=== PATIENT | female | born 1950 | race Caucasian/White ===

== ENCOUNTER 2017-08-19 11:15 | Emergency (ER) | payer MEDICARE, OTHER ==
[~2017-08-19] VITALS: Ht 157.5 cm; Wt 106.1 kg
[~2017-08-19 11:15] MED LIST: AMLODIPINE BESY10 MG PO; ASCORBIC ACID500 MG PO; ASPIR 8181 MG PO; CARAFATE1 GM PO; CIPRO500 MG PO; COGENTIN1 MG/1 ML PO; IRON325 M1 PO; ISOSORBIDE DINI20 MG PO; ISOSORBIDE MONO20 MG PO; LASIX40 MG PO; LISINOPRIL10 MG PO; LISINOPRIL30 MG PO; LOPRESSOR25 MG PO; METOPROLOL TAR100 MG PO; METOPROLOL TART25 MG PO; METOPROLOL TART50 MG PO; MULTIPLE VITAM1 EAC1 PO; PANTOPRAZOLE SO40 MG PO; POTASSIUM CHLO10 ME1 PO; PROTONIX40 MG/ML PO; XARELTO15 MG PO; ZYPREXA15 MG PO
[2017-08-19 12:39] LABS: BASOPHILS % 0.4 % (0.0-1.0); EOSINOPHILS # (AUTO) 0.4 (0.0-0.4); EOSINOPHILS % 5.6 % (0.0-6.0); HEMATOCRIT 34.4 % (34.2-44.1); HEMOGLOBIN 10.8 g/dL (12.0-16.0); LYMPHOCYTES % 27.1 % (18.0-39.1); MEAN CORPUSCULAR HEMOGLOBIN 22.9 pg (28-32); MEAN CORPUSCULAR HGB CONC 31.4 g/dL (31-35); MONOCYTES # (AUTO) 0.7 (0.2-0.8); MONOCYTES % 10.1 % (4.4-11.3); NEUTROPHILS # (AUTO) 4.1 (2.1-6.9); NEUTROPHILS % 56.5 % (38.7-80.0); PLATELET COUNT 310 x10e3/uL (140-360); RED BLOOD COUNT 4.71 x10e6/uL (3.6-5.1); RED CELL DISTRIBUTION WIDTH 22.9 % (11.7-14.4)
--- NOTE | 2017-08-19 13:03 | Diagnostic Imaging Report ---
PROCEDURE: A single AP view of the chest. COMPARISON: Patients [facility], , CHEST SINGLE (PORTABLE), 04/30/2017, 13:50. INDICATIONS: CHEST PAIN, ELEVATED BLOOD PRESSURE FINDINGS: Exam is limited by rotation. Lines/tubes: Stable 2-lead left upper chest cardiac device Lungs: The lungs are well inflated and grossly clear. There is no evidence of pneumonia or pulmonary edema. Pleura: There is no pleural effusion or pneumothorax. Heart and mediastinum: Cardiac silhouette is unremarkable. Pulmonary vasculature is normal. Tortuous aorta Bones: No acute bony abnormality. Multilevel degenerative disc changes in the thoracic spine. IMPRESSION: 1. No acute cardiopulmonary abnormalities. Meng Lou M.D. Dictated by: Meng Lou M.D. on 08/19/2017 at 13:11 Electronically approved by: Meng Lou M.D. on 08/19/2017 at 13:11
[2017-08-19 13:04] LABS: TROPONIN I 0.009 ng/mL (0-0.300)
[2017-08-19 13:06] LABS: ALANINE AMINOTRANSFERASE 7 IU/L (0-55); ALBUMIN 3.6 g/dL (3.5-5.0); ALKALINE PHOSPHATASE 106 IU/L (40-150); ANION GAP 11.9 mmol/L (8-16); BLOOD UREA NITROGEN 7 mg/dL (7-26); BUN/CREATININE RATIO 10 (6-25); CALCIUM 9.1 mg/dL (8.4-10.2); CARBON DIOXIDE 26 mmol/L (22-29); CHLORIDE 104 mmol/L (98-107); CREATINE KINASE 26 IU/L (29-168); CREATININE, SERUM 0.71 mg/dL (0.57-1.11); EST GLOMERULAR FILTRATION RATE > 60 ML/MIN (60-); GLUCOSE 95 mg/dL (74-118); POTASSIUM 3.9 mmol/L (3.5-5.1); SODIUM 138 mmol/L (136-145)
[2017-08-19 16:03] VITALS: BP 145/101
[2017-08-19 18:59] LABS: INR 1.13; PROTHROMBIN TIME 11.8 seconds (11.9-14.5)
== END 2017-08-19 16:15 | disposition home or self-care (01) ==
LOC: ER 11:15
DX: R07.89 Other chest pain (principal); I48.91 Unspecified atrial fibrillation; I25.10 Atherosclerotic heart disease of native coronary artery without angina pectoris; F20.9 Schizophrenia, unspecified; Z85.828 Personal history of other malignant neoplasm of skin; Z95.810 Presence of automatic (implantable) cardiac defibrillator
CPT/HCPCS: 36415; 71010; 80053; 82550; 82553; 84484; 85025; 85610; 85730; 93005; 99284

== ENCOUNTER 2017-09-14 10:34 | Emergency (ER) | payer MEDICARE, OTHER ==
[~2017-09-14] VITALS: Ht 157.5 cm; Wt 102.1 kg
--- NOTE | 2017-09-14 11:36 | Diagnostic Imaging Report ---
PROCEDURE: A single AP view of the chest. COMPARISON: None. INDICATIONS: SOB FINDINGS: Lines/tubes: Left chest cardiac device with leads projecting over the expected regions of the right atrium and ventricle. Lungs: The lungs are well inflated and clear. There is no evidence of pneumonia or pulmonary edema. Pleura: There is no pleural effusion or pneumothorax. Heart and mediastinum: The heart and the mediastinum are unremarkable. Bones: No acute bony abnormality. Degenerative changes of the thoracic spine. IMPRESSION: No acute radiographic abnormality. Dictated by: Stoney Foy M.D. on 09/14/2017 at 11:45 Electronically approved by: Stoney Foy M.D. on 09/14/2017 at 11:45
[2017-09-14 12:15] LABS: BASOPHILS # (AUTO) 0.1 (0.0-0.1); BASOPHILS % 0.5 % (0.0-1.0); EOSINOPHILS # (AUTO) 0.4 (0.0-0.4); EOSINOPHILS % 3.8 % (0.0-6.0); HEMATOCRIT 36.7 % (34.2-44.1); HEMOGLOBIN 12.4 g/dL (12.0-16.0); LYMPHOCYTES # (AUTO) 2.6 (1.0-3.2); LYMPHOCYTES % 23.7 % (18.0-39.1); MEAN CORPUSCULAR HEMOGLOBIN 24.3 pg (28-32); MEAN CORPUSCULAR HGB CONC 33.8 g/dL (31-35); MONOCYTES # (AUTO) 0.8 (0.2-0.8); MONOCYTES % 7.4 % (4.4-11.3); NEUTROPHILS # (AUTO) 6.9 (2.1-6.9); NEUTROPHILS % 64.2 % (38.7-80.0); PLATELET COUNT 283 x10e3/uL (140-360); RED CELL DISTRIBUTION WIDTH 20.9 % (11.7-14.4)
[2017-09-14 12:31] LABS: INR 1.56; PROTHROMBIN TIME 19.5 seconds (11.9-14.5)
[2017-09-14 12:40] LABS: ALANINE AMINOTRANSFERASE 8 IU/L (0-55); ALBUMIN 3.7 g/dL (3.5-5.0); ALKALINE PHOSPHATASE 107 IU/L (40-150); ANION GAP 12.9 mmol/L (8-16); BLOOD UREA NITROGEN 9 mg/dL (7-26); BUN/CREATININE RATIO 12 (6-25); CALCIUM 9.1 mg/dL (8.4-10.2); CARBON DIOXIDE 24 mmol/L (22-29); CHLORIDE 96 mmol/L (98-107); CREATINE KINASE 27 IU/L (29-168); CREATININE, SERUM 0.77 mg/dL (0.57-1.11); EST GLOMERULAR FILTRATION RATE > 60 ML/MIN (60-); GLUCOSE 106 mg/dL (74-118); LIPASE 9 U/L (8-78); POTASSIUM 3.9 mmol/L (3.5-5.1); SODIUM 129 mmol/L (136-145)
[2017-09-14 12:47] LABS: TROPONIN I < 0.001 ng/mL (0-0.300)
[2017-09-14 19:01] LABS: CREATINE KINASE MB 0.6 ng/mL (0.00-5.00); TROPONIN I 0.001 ng/mL (0-0.300)
[2017-09-14 20:44] VITALS: BP 168/72
== END 2017-09-14 21:56 | disposition home or self-care (01) ==
LOC: ER 10:34
DX: R07.89 Other chest pain (principal); I10 Essential (primary) hypertension; I48.91 Unspecified atrial fibrillation; F20.9 Schizophrenia, unspecified; Z95.810 Presence of automatic (implantable) cardiac defibrillator; Z85.828 Personal history of other malignant neoplasm of skin
CPT/HCPCS: 36415; 71010; 80053; 82550; 82553; 83690; 83880; 84484; 85025; 85610; 93005; 99283

== ENCOUNTER 2017-10-25 09:42 | Observation (INO) | payer MEDICARE, OTHER ==
[~2017-10-25] VITALS: Ht 157.5 cm; Wt 123.1 kg
[2017-10-25] MEDS ORDERED: ASPIRIN 81 MG CHEW TAB PO ONE (10:00)
[2017-10-25] MEDS ORDERED: LABETALOL HCL 5 MG/ML 20ML VIAL IV STA (10:03)
[2017-10-25 10:09] LABS: BASOPHILS % 0.5 % (0.0-1.0); EOSINOPHILS # (AUTO) 0.3 (0.0-0.4); EOSINOPHILS % 3.2 % (0.0-6.0); HEMATOCRIT 37.9 % (34.2-44.1); HEMOGLOBIN 12.7 g/dL (12.0-16.0); LYMPHOCYTES # (AUTO) 2.2 (1.0-3.2); LYMPHOCYTES % 25.3 % (18.0-39.1); MEAN CORPUSCULAR HEMOGLOBIN 25.5 pg (28-32); MEAN CORPUSCULAR HGB CONC 33.5 g/dL (31-35); MEAN CORPUSCULAR VOLUME 76.1 fL (81-99); MONOCYTES # (AUTO) 0.6 (0.2-0.8); MONOCYTES % 6.8 % (4.4-11.3); NEUTROPHILS # (AUTO) 5.5 (2.1-6.9); PLATELET COUNT 242 x10e3/uL (140-360); RED BLOOD COUNT 4.98 x10e6/uL (3.6-5.1); RED CELL DISTRIBUTION WIDTH 16.3 % (11.7-14.4)
[2017-10-25] MEDS ORDERED: SODIUM CHLORIDE 0.9% 500ML 500 ML IV ONE (10:15)
[2017-10-25 10:30] LABS: ALANINE AMINOTRANSFERASE 7 IU/L (0-55); ALBUMIN 3.8 g/dL (3.5-5.0); ALKALINE PHOSPHATASE 113 IU/L (40-150); ANION GAP 13.7 mmol/L (8-16); BLOOD UREA NITROGEN 11 mg/dL (7-26); BUN/CREATININE RATIO 15 (6-25); CALCIUM 8.8 mg/dL (8.4-10.2); CARBON DIOXIDE 23 mmol/L (22-29); CHLORIDE 101 mmol/L (98-107); CREATINE KINASE 30 IU/L (29-168); CREATININE, SERUM 0.71 mg/dL (0.57-1.11); EST GLOMERULAR FILTRATION RATE > 60 ML/MIN (60-); GLUCOSE 101 mg/dL (74-118); INR 1.17; POTASSIUM 3.7 mmol/L (3.5-5.1); SODIUM 134 mmol/L (136-145)
[2017-10-25 10:31] LABS: PARTIAL THROMBOPLASTIN TIME 32.6 seconds (23.8-35.5)
--- NOTE | 2017-10-25 11:22 | Diagnostic Imaging Report ---
Chest, AP. History: Cough. Comparison: Portable chest 09/14/2017 Discussion: Lines and support catheters: Left chest dual-lead cardiac pacemaker with leads projecting over the expected regions of the right atrium and ventricle unchanged. Cardiovascular: The cardiac silhouette is mildly enlarged. Mediastinum: No mediastinal, hilar, or axillary mass or lymphadenopathy. Lungs: No parenchymal mass. No focal consolidation. Pleura: No pleural effusion or pneumothorax. Bones: No acute osseous abnormality. Degenerative changes of the thoracic spine. Impression: Mild cardiomegaly. No acute thoracic abnormality. Signed by: Dr. Tylor Rivas M.D. on 10/25/2017 11:18 AM
[2017-10-25] MEDS ORDERED: HYDRALAZINE HCL 10 MG TAB PO NR (12:00)
--- NOTE | 2017-10-25 12:08 | Diagnostic Imaging Report ---
History:Headache and hypertension. Comparison studies:None Technique: Axial images were obtained from the skull base to the vertex. Coronal and sagittal images reconstructed from the axial data. Intravenous contrast: None Findings: Scalp/skull: No abnormalities. Extra-axial spaces: No masses. No fluid collections. Brain sulci: Mildly prominent. Ventricles: Age appropriate. No hydrocephalus. Parenchyma: Stable left putamen prominent prevascular space as a variation of anatomy. . No masses, hemorrhage, acute or chronic cortical vascular insults. Sellar/suprasellar region: No abnormalities. Craniocervical junction: Patent foramen magnum. No Chiari one malformation. Incidental findings: Atherosclerotic calcifications in the carotid siphons . Impression: No acute abnormalities. Signed by: DR Marc Gordillo M.D. on 10/25/2017 12:05 PM
[2017-10-25] MEDS ORDERED: HYDRALAZINE HCL 20 MG/ML VIAL IV PRN (12:30)
[2017-10-25 13:40] VITALS: BP 166/84
[2017-10-25 16:17] VITALS: BP 141/89
[2017-10-25] MEDS ORDERED: ACETAMINOPHEN/CODEINE 300MG - 30MG TAB PO PRN (18:00)
[2017-10-25] MEDS ORDERED: ASPIRIN 81 MG CHEW TAB PO PRN (18:00)
[2017-10-25] MEDS: ACETAMINOPHEN 325 MG TAB PO PRN (18:19)
[2017-10-25] MEDS: SUCRALFATE 1 GM TAB PO SCH ×2 (18:20→21:30)
[2017-10-25 19:08] LABS: CREATINE KINASE MB 0.6 ng/mL (0-5.0)
[2017-10-25 20:00] VITALS: BP 136/79
[2017-10-25 22:03] VITALS: BP 136/79
[2017-10-26] VITALS: BP 146/96
[2017-10-26 04:00] VITALS: BP 145/83
[2017-10-26] MEDS: PANTOPRAZOLE SOD 40 MG TABEC PO SCH ×2 (07:30→16:30)
[2017-10-26] MEDS ORDERED: MULTIVITAMIN WITH MINERALS PO SCH (08:00)
[2017-10-26] MEDS: MULTIVITAMINS/MINERALS TAB PO SCH ×2 (08:00→16:42)
[2017-10-26] MEDS: ASCORBIC ACID 500 MG TAB PO SCH ×2 (08:00→16:42)
[2017-10-26 08:17] VITALS: BP 165/104
[2017-10-26 08:22] LABS: CREATINE KINASE MB 0.6 ng/mL (0-5.0)
[2017-10-26] MEDS: RIVAROXABAN 15 MG TABLET PO SCH (09:00)
[2017-10-26] MEDS: FUROSEMIDE 40 MG TAB PO SCH ×2 (09:00→16:42)
[2017-10-26] MEDS: LISINOPRIL 10 MG TAB PO SCH ×2 (09:00→16:42)
[2017-10-26] MEDS ORDERED: ASPIRIN 325 MG TAB EC PO SCH (09:00)
[2017-10-26] MEDS: ISOSORBIDE MONONITRATE 20 MG TAB PO SCH ×2 (09:00→16:41)
[2017-10-26] MEDS ORDERED: OLANZAPINE 15 MG PO SCH (09:00)
[2017-10-26] MEDS: METOPROLOL TARTRATE 25 MG TAB PO SCH (09:00)
[2017-10-26] MEDS: OLANZAPINE 5 MG TAB PO SCH (09:00)
[2017-10-26] MEDS: SUCRALFATE 1 GM TAB PO SCH ×4 (09:00→21:00)
[2017-10-26] MEDS: POTASSIUM CHLORIDE 10 MEQ TABCR PO SCH (09:00)
[2017-10-26 11:55] VITALS: BP 107/74
[2017-10-26 16:22] VITALS: BP 119/77
--- NOTE | 2017-10-26 19:52 | History and Physical ---
PRIMARY CARE PROVIDER: Dr. Clinton Parra CHIEF COMPLAINT: Chest pain and shortness of breath and accelerated hypertension. HISTORY OF PRESENT ILLNESS: Ms. Gonzalez is a 67-year-old lady presenting with 1 day of chest pain and elevated blood pressure and some shortness of breath. REVIEW OF SYSTEMS: She denies fever, chills or weight loss. She denies sinus congestion or sore throat. She has chest pain as noted and shortness of breath. She denied wheezing or cough. She denies abdominal pain, nausea, vomiting or melena. She does have gastroesophageal reflux. She denies dysuria or flank pain. She denies rash or pruritus. She denies joint pain or swelling. She denies headache, vertigo or loss of consciousness. She denies bleeding or bruising. She denies rash or pruritus. She denies depression, agitation, homicide or suicidal ideation. PAST MEDICAL HISTORY: Significant for long-standing hypertension, paroxysmal atrial fibrillation, schizophrenia, colitis, chronic systolic heart failure with an ejection fraction of 40% to 45% six months ago. MEDICATIONS: Her regular medications include: 1. Vitamin C 500 mg twice a day. 2. Aspirin 81 mg daily. 3. Lasix 40 mg twice a day. 4. Isosorbide mononitrate 20 mg twice daily. 5. Lisinopril 10 mg twice daily. 6. Metoprolol 25 mg daily. 7. Multivitamin daily. 8. Zyprexa 15 mg daily. 9. Protonix 40 mg twice a day before meals. 10. Potassium 8 mEq daily. 11. Xarelto 15 mg daily. 12. Carafate 1 g 4 times a day before meals. 13. Iron sulfate 325 mg twice a day. 14. Cogentin as needed for agitation. She has a distant history of hysterectomy, appendectomy and she is not a smoker. ALLERGIES: SHE HAS A STATED ALLERGY TO CODEINE. FAMILY HISTORY: Significant for hypertension. SOCIAL HISTORY: The patient is . [place] is her primary language. She does not smoke, drink or use illegal drugs. She is generally independent functioning. PHYSICAL EXAMINATION PSYCHIATRIC: She is alert and oriented times 3 with normal mood and affect. CONSTITUTIONAL: She is somewhat overweight. Possibly morbidly obese. Her BMI is 49. She is in no acute distress. VITAL SIGNS: Blood pressure initially 194/121 and currently 119/77. Pulse initially 99 and currently 57 and regular. Respiratory rate 18, O2 sat 96% on room air, temperature 96.6. HEENT: Her head is atraumatic. Her eyes are anicteric with clear conjunctivae. Ears and nares are without erythema or discharge. Oropharynx is clear. NECK: Supple. No mass or thyromegaly. LYMPHATIC SYSTEM: She has no palpable cervical, axillary or inguinal adenopathy. CARDIOVASCULAR: Her heart has a regular rate and rhythm without murmur or extra heart sounds. She has no carotid bruit. She has no peripheral edema. She has weak dorsal pedal pulses. RESPIRATORY: Lungs are clear to auscultation and percussion with normal respiratory effort. GASTROINTESTINAL: Abdomen is soft without organomegaly, masses or tenderness. She has normal bowel sounds present. CUTANEOUS: Her skin is warm and dry to touch with no rash or skin breakdown. MUSCULOSKELETAL: Her joints are in normal alignment without erythema or swelling. She has no calf tenderness. NEUROLOGIC: Nonfocal with intact cranial nerves and no motor or sensory deficits. DIAGNOSTIC STUDIES: Chest x-ray shows cardiomegaly, but no acute disease. CT scan of the brain is normal with no acute disease. Her EKG shows normal sinus rhythm with pulmonary disease pattern, but no acute ischemic changes. Her echo she had in April of 2017 showed left ventricular hypertrophy and an EF of 40% to 45%. Her troponin is 0.00, 0.00, 0.00. BNP 106.7. Chemistry shows normal electrolytes. CO2 23, creatinine 0.71, BUN 11. Calcium 8.8. Glucose 101. Her transaminases, bilirubin and alk phos were all normal. CBC shows a white count of 8.54 with a normal differential. Hemoglobin 12.7, hematocrit 37.9 and platelet count 242,000. Coags are normal. IMPRESSION AND PLAN 1. Chest pain: Rule out acute coronary syndrome. Currently, the patient's myocardial infarction has ruled out with cardiac enzymes negative times 3. She no longer has any chest pain. Her electrocardiogram shows no acute changes. 2. Hypertension with chronic systolic heart failure: Hypertensive urgency or accelerated hypertension complicated by congestive heart failure. Her blood pressure is now controlled with her home meds of lisinopril, isosorbide metoprolol along with Lasix for the congestive heart failure. Will continue those and p.r.n. hydralazine. 3. Paroxysmal atrial fibrillation: The patient is currently in sinus rhythm. Will continue her metoprolol and Xarelto. 4. For schizophrenia, the patient will continue her Zyprexa. 5. For prophylaxis, the patient is on Xarelto for stroke and deep venous thrombosis prophylaxis, and Protonix for gastrointestinal prophylaxis. Job#: [id number] RI
[2017-10-26 20:00] VITALS: BP 140/92
[2017-10-27] VITALS: BP 121/80
[2017-10-27 04:00] VITALS: BP 146/93
[2017-10-27 06:43] LABS: BASOPHILS % 0.4 % (0.0-1.0); EOSINOPHILS # (AUTO) 0.2 (0.0-0.4); EOSINOPHILS % 2.7 % (0.0-6.0); HEMATOCRIT 33.8 % (34.2-44.1); HEMOGLOBIN 11.2 g/dL (12.0-16.0); LYMPHOCYTES # (AUTO) 1.9 (1.0-3.2); LYMPHOCYTES % 20.4 % (18.0-39.1); MEAN CORPUSCULAR HEMOGLOBIN 25.8 pg (28-32); MEAN CORPUSCULAR HGB CONC 33.1 g/dL (31-35); MEAN CORPUSCULAR VOLUME 77.9 fL (81-99); MONOCYTES # (AUTO) 0.9 (0.2-0.8); MONOCYTES % 9.7 % (4.4-11.3); NEUTROPHILS % 66.5 % (38.7-80.0); PLATELET COUNT 210 x10e3/uL (140-360); RED BLOOD COUNT 4.34 x10e6/uL (3.6-5.1); RED CELL DISTRIBUTION WIDTH 16.2 % (11.7-14.4)
[2017-10-27 07:05] LABS: BLOOD UREA NITROGEN 13 mg/dL (7-26); BUN/CREATININE RATIO 16 (6-25); CARBON DIOXIDE 27 mmol/L (22-29); CHLORIDE 97 mmol/L (98-107); CREATININE, SERUM 0.81 mg/dL (0.57-1.11); EST GLOMERULAR FILTRATION RATE > 60 ML/MIN (60-); GLUCOSE 102 mg/dL (74-118); SODIUM 134 mmol/L (136-145)
[2017-10-27 07:28] VITALS: BP 157/102
[2017-10-27] MEDS: ISOSORBIDE MONONITRATE 20 MG TAB PO SCH ×2 (08:43→18:05)
[2017-10-27] MEDS: FUROSEMIDE 40 MG TAB PO SCH ×2 (08:43→18:05)
[2017-10-27] MEDS: ASCORBIC ACID 500 MG TAB PO SCH ×2 (08:43→18:05)
[2017-10-27] MEDS: POTASSIUM CHLORIDE 10 MEQ TABCR PO SCH (08:43)
[2017-10-27] MEDS: MULTIVITAMINS/MINERALS TAB PO SCH ×2 (08:43→18:05)
[2017-10-27] MEDS: PANTOPRAZOLE SOD 40 MG TABEC PO SCH ×2 (08:43→16:31)
[2017-10-27] MEDS: SUCRALFATE 1 GM TAB PO SCH ×4 (08:43→21:00)
[2017-10-27] MEDS: LISINOPRIL 10 MG TAB PO SCH (08:44)
[2017-10-27] MEDS: OLANZAPINE 5 MG TAB PO SCH (08:44)
[2017-10-27] MEDS: RIVAROXABAN 15 MG TABLET PO SCH (08:44)
[2017-10-27] MEDS: METOPROLOL TARTRATE 25 MG TAB PO SCH (08:44)
[2017-10-27 11:23] VITALS: BP 94/70
[2017-10-27] MEDS: ACETAMINOPHEN 325 MG TAB PO PRN (11:28)
[2017-10-27] MEDS ORDERED: ACETAMIN/BUTALBITAL/CAFFEINE TAB PO PRN (14:00)
[2017-10-27] MEDS ORDERED: Multivitamins/Minerals PO (14:13)
[2017-10-27] MEDS ORDERED: Acetamin/Butalbital/Caffeine PO (14:13)
[2017-10-27] MEDS ORDERED: ZYPREXA5 MG PO (14:13)
[2017-10-27] MEDS ORDERED: LISINOPRIL10 MG PO (14:13)
[2017-10-27] MEDS ORDERED: ACETAMIN/BUTALBITAL/CAFFEINE TAB PO ONE (14:15)
[2017-10-27] MEDS ORDERED: LISINOPRIL 10 MG TAB PO SCH ×2 (15:00→17:00)
[2017-10-27 15:15] VITALS: BP 130/89
--- NOTE | 2017-10-27 18:00 | Discharge Summary ---
PERTINENT HISTORY AND PHYSICAL FINDINGS: The patient was admitted with chief complaint of chest pain and shortness of breath and accelerated hypertension. Her primary care physician is Dr. Clinton Parra. She is a 67-year-old lady who presented with one day of chest pain and elevated blood pressure with some shortness of breath. At the time, she had no other complaints. PAST MEDICAL HISTORY: Significant for longstanding hypertension, paroxysmal atrial fibrillation, schizophrenia, colitis, chronic systolic heart failure with an ejection fraction of 40% to 45% six months prior. She has a stated allergy to codeine. FAMILY HISTORY: Positive for hypertension. She denied any history of smoking, drinking or use of illicit drugs. Her admitting diagnostic studies included a chest x-ray which showed cardiomegaly without acute disease. CT of the brain was normal without any acute disease. EKG was normal with normal sinus rhythm with pulmonary disease pattern, but no acute ischemic changes. Her echocardiogram that she had in April of 2017 showed left ventricular hypertrophy and an ejection fraction of 40% to 45%. Troponin level was 0 x3. B-natriuretic peptide 106.7. Chemistry showed normal electrolytes. CO2 of 23, BUN 11, creatinine 0.71. Glucose 101. Calcium 8.8. Transaminases, bilirubin and alkaline phosphatase were all normal. CBC showed a white blood cell count of 8.54 with a normal differential. Hemoglobin 12.7, hematocrit 37.9 and platelet count of 242,000. Coags were normal. ADMITTING DIAGNOSES 1. Chest pain. 2. Hypertension with chronic systolic heart failure. 3. Paroxysmal atrial fibrillation. 4. Schizophrenia. DISCHARGE DIAGNOSES 1. Chest pain. 2. Hypertension with chronic systolic heart failure. 3. Paroxysmal atrial fibrillation. 4. Schizophrenia. 5. Headache. Today on the day of discharge, her sodium was 134, potassium 4.0, chloride 97, CO2 of 27, BUN 13, creatinine 0.81, glomerular filtration rate greater than 60. Glucose 102. WBC 9.05. Hemoglobin 11.2, hematocrit 33.8, platelets 210,000. Neutrophils 66.5%. Subjectively, she complains of severe headache with complaint of pain, 8/10 on a 0-10 scale. She has mild shortness of breath, no chest pain. Her last bowel movement was yesterday. Per telemetry, she is in normal sinus rhythm with a heart rate of 65. PHYSICAL EXAMINATION VITAL SIGNS: From today, temperature 96.2, heart rate 67, blood pressure 157/102 this morning and subsequently 94/70, respiratory rate 16, oxygen saturation 99%. GENERAL: The patient is in no acute distress. She is lying supine. LUNGS: Clear to auscultation. Respirations even and unlabored. HEENT: Extraocular eye movements intact. NECK: Supple. No lymphadenopathy or thyromegaly. CARDIOVASCULAR: Regular rate and rhythm without murmur. ABDOMEN: Bowel sounds positive x4 quadrants. Obese, soft and nontender. EXTREMITIES: Without pitting edema. No signs or symptoms of DVT. NEUROLOGIC: GCS 15, nonfocal, flat affect. Regarding her chest pain, rule out acute coronary syndrome. Her troponin I has been negative x3, no chest pain, no telemetry changes. Regarding her hypertension, she is on lisinopril, isosorbide mononitrate, metoprolol and Lasix all given at 9 a.m. which appears to have lowered her blood pressure a bit too low. So, I have changed her schedule on her lisinopril from 9 and 5 to 7 a.m. and 3 p.m. Will send her home on that. Another thing that may help her blood pressure is treating her headache. Tylenol was ineffective. Will try Fioricet and send her home with a prescription for that, and if it works she can try that at home. Her Zyprexa was continued for the schizophrenia. She was on Xarelto and Protonix for DVT and peptic ulcer disease prophylaxis respectively. Will send her home on a cardiac diet and activity as tolerated. The patient is to follow up with her primary care physician in one to two weeks. Dictated by: Vishnu Castillo NP MAXIMO MCCANN MD Job#: [id number]
[2017-10-27 21:56] VITALS: BP 130/89
== END 2017-10-27 22:58 | disposition home or self-care (01) ==
LOC: ER 09:42 → ERHOLD 12:52 → MED/SURG3 12:58
PROVIDERS: ADMIT Internal Medicine; ATTEND Internal Medicine
DX: R07.9 Chest pain, unspecified (principal); I16.0 Hypertensive urgency; I11.0 Hypertensive heart disease with heart failure; I50.22 Chronic systolic (congestive) heart failure; I48.0 Paroxysmal atrial fibrillation; K21.9 Gastro-esophageal reflux disease without esophagitis; F20.9 Schizophrenia, unspecified; E66.9 Obesity, unspecified; Z68.42 Body mass index [BMI] 45.0-49.9, adult; Z87.891 Personal history of nicotine dependence; Z95.0 Presence of cardiac pacemaker; Z79.02 Long term (current) use of antithrombotics/antiplatelets; Z79.82 Long term (current) use of aspirin
CPT/HCPCS: 36415 ×3; 70450; 71045; 80048; 80053; 82550 ×2; 82553 ×2; 82948; 83880; 84484 ×2; 85025 ×2; 85610; 85730; 93005; 99284; G0378 ×3; J0360; J3490; J7040

== ENCOUNTER → 2018-10-29 | Day surgery (SDC) | payer MEDICARE, OTHER ==
[~2018-10-29] MED LIST changes: +ATIVAN0.5 MG PO; +Acetamin/Butalbital/Caffeine PO; +FENTANYL CITRATE/PF 100MCG/2 ML INJ ONE; +GLUCAGON FOR INJ 1 MG VIAL ONE; +LACTULOSE20 GM/30 M PO; +LORATADINE PO; +MELATONIN3 MG PO; +MIDAZOLAM HCL 2 MG/2 ML VIAL ONE; +MIRALAX17 GM PO; +Multivitamins/Minerals PO; +NITROSTAT0.4 MG PO; +NORVASC5 MG PO; +OLANZAPINE20 MG PO; +PRILOSEC OTC20 MG PO; +PROPOFOL IV EMULSION 10 MG/ML 50 ML VIAL ONE; +TYLENOL EXTRA500 MG PO; +TYLENOL325 MG PO; +VITAMIN D1000 UNI1 PO; +VITAMIN D250000 UNIT PO; +XARELTO10 MG PO; +ZOLOFT50 MG PO; +ZYPREXA5 MG PO
--- OUTSIDE RECORDS SUMMARY | 2018-10-29 09:25 | XMS REPORT | Clinical Summary ---
Author Author [facility] Organization [facility] Address Unknown Phone Unavailable Care Team Providers Care Grants Manager Name Role Phone Mini Morillo MD PCP Allergies Comments Active Allergy Reactions Severity Noted Date Codeine GI Low 05/06/2018 Intolerance Medications End Date Status Medication Sig Dispensed Refills Start Date Active nitroglycerin (NITROSTAT) Place 0.4 mg 0 0.4 MG SL tablet under the tongue every 5 (five) minutes as needed for chest pain. Active amLODIPine (NORVASC) 5 mg Take 5 mg by 0 tablet mouth daily. Active acetaminophen (TYLENOL) Take 650 mg 0 325 MG tablet by mouth every 6 (six) hours as needed for fever. Active cholecalciferol, vitamin Take 2,000 0 D3, (VITAMIN D3) 2,000 Units by unit capsule capsule mouth daily. Active rivaroxaban (XARELTO) 15 Take 15 mg by 0 mg tablet mouth. Active lisinopril Take 20 mg by 0 (PRINIVIL,ZESTRIL) 20 mg mouth 2 (two) tablet times a day. Active OLANZapine (ZyPREXA) 20 Take 20 mg by 0 MG tablet mouth nightly. Active benztropine (COGENTIN) 2 Take 2 mg by 0 MG tablet mouth 2 (two) times a day. Active loratadine (CLARITIN) 10 Take 10 mg by 0 mg tablet mouth daily. Active furosemide (LASIX) 20 mg Take 20 mg by 0 tablet mouth 2 (two) times a day. Active magnesium hydroxide 400 Take 30 mL by 0 mg/5 mL suspension mouth daily as needed. Active polyethylene glycol Take 17 g by 0 (MIRALAX) 17 gram packet mouth nightly. Active ergocalciferol (VITAMIN Take 50,000 0 D2) 50,000 unit capsule Units by mouth once a week. Every Thursday morning x 12 weeks (started 03-28- --14-18) 05/06/2018 Discontinued OLANZapine zydis Take 20 mg by 0 (ZyPREXA) 10 MG mouth disintegrating tablet nightly. 06/23/2018 aspirin (ECOTRIN) 81 MG Take 1 tablet 30 tablet 0 enteric coated tablet (81 mg total) 8 by mouth daily for 30 days. 06/23/2018 isosorbide dinitrate Take 1 tablet 60 tablet 0 (ISORDIL) 10 MG tablet (10 mg total) 8 by mouth 2 (two) times a day for 30 days. Active Problems Problem Noted Date Unstable angina 05/22/2018 Encounters Care Team Description Date Type Specialty Gunnar Santos Jr., MD Chest pain, unspecified type (Primary Dx) 06/18/2018 Emergency Emergency Medicine - 06/19/2018 Taran Ruiz MD Cv left heart cath w lv gram cors [[id number] (CPT)] 05/24/2018 Surgery Procedural Cardiology Alexia Crocker MD Morris, David, DO Li, MD Watson Cox, Fuad Dee MD Unstable angina (Primary Dx) 05/21/2018 Emergency General Internal Medicine - 05/24/2018 Farhan Hodgson MD Atypical chest pain (Primary Dx) 05/06/2018 Emergency Emergency Medicine after 10/28/2017 Immunizations Name Dates Previously Given Next Due FLUCELVAX QUAD PF (0.5mL 05/24/2018 syringe) Pneumococcal Conjugate 05/24/2018 13-Valent Social History Date Tobacco Use Types Packs/Day Years Used Never Smoker Smokeless Tobacco: Never Used Alcohol Use Drinks/Week oz/Week Comments No Sex Assigned at Date Recorded Not on file Industry Job Start Date Occupation Not on file Not on file Not on file Travel End Travel History Travel Start No recent travel history available. Last Filed Vital Signs Time Taken Vital Sign Reading 06/19/2018 3:26 AM CDT Blood Pressure 132/70 06/19/2018 3:26 AM CDT Pulse 70 06/18/2018 9:23 PM CDT Temperature 36.9 C (98.5 F) 06/19/2018 3:26 AM CDT Respiratory Rate 18 06/19/2018 3:26 AM CDT Oxygen Saturation 99% - Inhaled Oxygen - Concentration 06/18/2018 9:23 PM CDT Weight 108 kg (237 lb) 06/18/2018 9:23 PM CDT Height 157.5 cm (5' 2") 06/18/2018 9:23 PM CDT Body Mass Index 43.35 Plan of Treatment Health Maintenance Due Date Last Done Comments BREAST CANCER SCREENING 1998 COLON CANCER SCREENING 1998 SHINGLES VACCINES (#1) 1998 PNEUMOCOCCAL 2013 POLYSACCHARIDE VACCINE AGE 65 AND OVER 65+ PNEUMOCOCCAL VACCINE 05/24/2019 05/24/2018 (2 of 2 - PPSV23) INFLUENZA VACCINE Completed 05/24/2018 Implants Device Identifier Shelf Expiration Date Model / Serial / Lot Implanted Type Area Manufactur er 04/06/2020 [id number] / / [id number] Device Vasclr Clsr Baln Cath 10ml Cardiovasc N/A: N/A CARDINAL Lkng Syr 6fr 7fr Mynxgrip - [facility] [id number] Implants Implanted: 05/24/2018 (Quantity not on file) 04/06/2020 [id number] / / [id number] Device Vasclr Clsr Baln Cath 10ml Cardiovasc N/A: N/A CARDINAL Lkng Syr 6fr 7fr Mynxgrip - ar [facility] [id number] Implants Implanted: 05/24/2018 (Quantity not on file) Pacemaker Pacemaker Procedures Comments Procedure Name Priority Date/Time Associated Diagnosis TROPONIN Timed 06/19/2018 1:25 AM CDT URINALYSIS SCREEN AND Routine 06/18/2018 MICROSCOPY, WITH REFLEX 10:55 PM CDT TO CULTURE GRAM STAIN Routine 06/18/2018 10:55 PM CDT URINE CULTURE Routine 06/18/2018 10:55 PM CDT ECG ED PRELIMINARY Routine 06/18/2018 INTERPRETATION 10:16 PM CDT ESTIMATED GFR STAT 06/18/2018 10:01 PM CDT B NATRIURETIC PEPTIDE STAT 06/18/2018 10:01 PM CDT TROPONIN STAT 06/18/2018 10:01 PM CDT COMPREHENSIVE METABOLIC STAT 06/18/2018 PANEL 10:01 PM CDT PARTIAL THROMBOPLASTIN STAT 06/18/2018 TIME (PTT) 10:01 PM CDT PROTHROMBIN TIME WITH INR STAT 06/18/2018 10:01 PM CDT HC COMPLETE BLD COUNT STAT 06/18/2018 W/AUTO DIFF 10:01 PM CDT XR CHEST 2 VW STAT 06/18/2018 9:55 PM CDT ECG 12-LEAD STAT 06/18/2018 9:25 PM CDT CV LEFT HEART CATH LV Routine 05/24/2018 GRAM WITH CORS 10:51 AM CDT NM MYOCARDIAL PERFUSION Routine 05/23/2018 STRESS REST 2 DAY 11:26 AM CDT CV STRESS TEST NUCLEAR Routine 05/23/2018 CARDIO 11:26 AM CDT BILIRUBIN DIRECT Routine 05/23/2018 5:15 AM CDT ESTIMATED GFR Routine 05/23/2018 5:15 AM CDT THYROID STIMULATING Routine 05/23/2018 HORMONE 5:15 AM CDT T3, FREE Routine 05/23/2018 5:15 AM CDT PROTHROMBIN TIME WITH INR Routine 05/23/2018 5:15 AM CDT PARTIAL THROMBOPLASTIN Routine 05/23/2018 TIME (PTT) 5:15 AM CDT MAGNESIUM LEVEL Routine 05/23/2018 5:15 AM CDT LIPID PANEL Routine 05/23/2018 5:15 AM CDT HEMOGLOBIN A1C Routine 05/23/2018 5:15 AM CDT COMPREHENSIVE METABOLIC Routine 05/23/2018 PANEL 5:15 AM CDT HC COMPLETE BLD COUNT Routine 05/23/2018 W/AUTO DIFF 5:15 AM CDT B NATRIURETIC PEPTIDE Routine 05/23/2018 5:15 AM CDT TROPONIN Routine 05/22/2018 6:50 PM CDT D-DIMER STAT 05/22/2018 2:06 PM CDT CBC HEMOGRAM STAT 05/22/2018 2:06 PM CDT ANTI XA, UNFRACTIONATED STAT 05/22/2018 2:06 PM CDT PROTHROMBIN TIME WITH INR STAT 05/22/2018 2:06 PM CDT PARTIAL THROMBOPLASTIN STAT 05/22/2018 TIME (PTT) 2:[address] ANGIOGRAM PE CHEST STAT 05/22/2018 1:29 PM CDT TROPONIN Timed 05/22/2018 12:05 PM CDT ECHOCARDIOGRAM 2D Routine 05/22/2018 COMPLETE W MMODE SPECTRAL 11:48 AM CDT COLOR DOPPLER ([id number]) ESTIMATED GFR STAT 05/22/2018 8:45 AM CDT BASIC METABOLIC PANEL STAT 05/22/2018 8:45 AM CDT B NATRIURETIC PEPTIDE STAT 05/22/2018 8:45 AM CDT TROPONIN Timed 05/22/2018 8:45 AM CDT TROPONIN Timed 05/22/2018 4:13 AM CDT TROPONIN Timed 05/22/2018 2:00 AM CDT ESTIMATED GFR STAT 05/21/2018 10:13 PM CDT PROTHROMBIN TIME WITH INR STAT 05/21/2018 10:13 PM CDT TROPONIN STAT 05/21/2018 10:13 PM CDT CREATINE KINASE, TOTAL STAT 05/21/2018 (CPK) 10:13 PM CDT COMPREHENSIVE METABOLIC STAT 05/21/2018 PANEL 10:13 PM CDT HC COMPLETE BLD COUNT STAT 05/21/2018 W/AUTO DIFF 10:13 PM CDT ECG ED PRELIMINARY Routine 05/21/2018 INTERPRETATION 10:06 PM CDT XR CHEST 1 VW PORTABLE STAT 05/21/2018 9:57 PM CDT ECG 12-LEAD STAT 05/21/2018 9:42 PM CDT TROPONIN Timed 05/06/2018 12:55 PM CDT ZZESTIMATED GFR STAT 05/06/2018 10:30 AM CDT B NATRIURETIC PEPTIDE STAT 05/06/2018 10:30 AM CDT TROPONIN STAT 05/06/2018 10:30 AM CDT CREATINE KINASE, TOTAL STAT 05/06/2018 (CPK) 10:30 AM CDT BASIC METABOLIC PANEL STAT 05/06/2018 10:30 AM CDT HC COMPLETE BLD COUNT STAT 05/06/2018 W/AUTO DIFF 10:30 AM CDT XR CHEST 1 VW PORTABLE STAT 05/06/2018 10:05 AM CDT ECG 12-LEAD STAT 05/06/2018 10:00 AM CDT ECG ED PRELIMINARY Routine 05/06/2018 INTERPRETATION 9:59 AM CDT after 10/28/2017 Results * Troponin (06/19/2018 1:25 AM CDT) Only the most recent of 10 results within the time period is included. Troponin <0.30 0.00 - 0.30 ng/mL [facility] Comment: PATHOLOGY AND 0.11 - 1.49 GENOMIC MEDICINE ng/mlMay indicate increased risk of acute coronary syndrome. >=1.5 ng/ml Consistent with acute myocardial infarction. The diagnostic value of a single normal or non-diagnostic result is questionable.Serial samples at 2-6 hour intervals are required to rule out acute myocardial injury. Specimen Plasma specimen Performing Organization Address City/State/Zipcode Phone Number [place] [address] [place] [address] PATHOLOGY AND [facility] * Urinalysis screen and microscopy, with reflex to culture (06/18/2018 10:55 PM CDT) Specimen site Clean catch [facility]Y AND GENOMIC MEDICINE Color, UA Straw [facility] OF PATHOLOGY AND GENOMIC MEDICINE Appearance, UA Clear [facility]OLOGY AND GENOMIC MEDICINE Specific gravity, UA 1.004 1.001 - 1.035 [facility]Y AND GENOMIC MEDICINE pH, UA 6.0 5.0 - 8.5 [facility]Y AND GENOMIC MEDICINE Protein, UA Negative Negative [facility]Y AND GENOMIC MEDICINE Glucose, UA Negative Negative [facility]OLOGY AND GENOMIC MEDICINE Ketones, UA Negative Negative [facility]OLOGY AND GENOMIC MEDICINE Bilirubin, UA Negative Negative [facility]Y AND GENOMIC MEDICINE Blood, UA Small (A) Negative [facility]Y AND GENOMIC MEDICINE Nitrite, UA Negative Negative [facility]OLOGY AND GENOMIC MEDICINE Urobilinogen, UA Negative <2.0 [facility]Y AND GENOMIC MEDICINE Leukocyte esterase, UA Large (A) Negative [facility] Comment: PATHOLOGY AND Corrected result; previously [facility] reported as Negative on 06/18/2018 at 23:29 by I/AUT Epithelial cells, UA Few /HPF [facility]OLOGY AND GENOMIC MEDICINE WBC, UA None seen 0 - 5 /HPF [facility]OLOGY AND GENOMIC MEDICINE RBC, UA <1 0 - 5 /HPF [facility]OLOGY AND GENOMIC MEDICINE Bacteria, UA Trace None seen [facility]OLOGY AND GENOMIC MEDICINE Yeast, UA None seen [facility]OLOGY AND GENOMIC MEDICINE Yeast with pseudohyphae, None seen [facility] PATHOLOGY AND GENOMIC MEDICINE Specimen Urine Performing Organization Address City/State/Zipcode Phone Number [place] [address] [place] [address] PATHOLOGY AND GENOMIC MEDICINE * Gram stain (06/18/2018 10:55 PM CDT) Gram stain result No WBC's [facility] DEPARTMENT OF Few Gram positive rods PATHOLOGY AND Comment: GENOMIC MEDICINE Specimen Information Specimen Source: Urine Specimen Site: Clean catch Specimen Urine Performing Organization Address City/[facility]/Zipcode Phone Number [facility] DEPARTMENT OF [address] [place] [address] PATHOLOGY AND GENOMIC MEDICINE * Urine culture (06/18/2018 10:55 PM CDT) Urine culture isolate Mixed Gram positive florence [facility] DEPARTMENT OF 10-4 cfu/ml PATHOLOGY AND (A) GENOMIC MEDICINE Comment: Specimen Information Specimen Source: Urine Specimen Site: Clean catch Urine culture isolate Gram negative rods [facility] DEPARTMENT OF <10-1 cfu/ml PATHOLOGY AND (A) GENOMIC MEDICINE Specimen Urine Performing Organization Address City/[facility]/Zipcode Phone Number [facility] DEPARTMENT OF [address] [place] [address] PATHOLOGY AND GENOMIC MEDICINE * ECG ED Preliminary Interpretation - NOT AN ORDER (06/18/2018 10:16 PM CDT) Only the most recent of 3 results within the time period is included. Narrative Performed At Gunnar Santos Jr., MD 06/21/20182:52 AM ECG ED Preliminary Interpretation - Not an Order Performed by: GUNNAR SANTOS JR. Authorized by: GUNNAR SANTOS JR. ECG reviewed by ED Physician in the absence of a generator rebuilder: yes Interpretation: Interpretation: normal Rate: ECG rate:77 ECG rate assessment: normal Rhythm: Rhythm: sinus rhythm Ectopy: Ectopy: none QRS: QRS axis:Left Conduction: Conduction: abnormal Abnormal conduction: incomplete LBBB ST segments: ST segments:Normal T waves: T waves: normal * Estimated GFR (06/18/2018 10:01 PM CDT) Only the most recent of 4 results within the time period is included. Estimated GFR 75 mL/min/1.73 m2 [facility] Comment: PATHOLOGY AND [employer] GENOMIC MEDICINE rpretation G1 >=90 Normal or high G2 60-89Mildly decreased O3g16-60 Mildly to moderately decreased [id number] Moderately to severely decreased G4 15-29Severely decreased G5 <15Kidney failure The eGFR was calculated using the Chronic Kidney Disease Epidemiology Collaboration (CKD-EPI) equation. Interpretation is based on recommendations of the National Kidney Foundation-Kidney Disease Outcomes Quality Initiative (NKF-KDOQI) published in 2014. Specimen Plasma specimen Performing Organization Address City/[facility] Phone Number [place] [address] [place] [address] PATHOLOGY AND [facility] * Partial thromboplastin time, activated (06/18/2018 10:01 PM CDT) Only the most recent of 3 results within the time period is included. PTT 42.1 (H) 23.0 - 36.0 sec [facility] Comment: PATHOLOGY AND PTT therapeutic range for GENOMIC MEDICINE unfractionated heparin is 61.0-112.0 seconds which corresponds to Anti-Xa 0.3-0.7 U/ml. Note:Change in Panic Value The PTT Panic Value is changing from 110 sec. to 100 sec. due to new instrumentation and reagents. Correlation studies have been performed to validate this result. Specimen Blood Performing Organization Address [facility] Hospital[facility] Phone Number [address] [place] [phone] PATHOLOGY AND [facility] * Prothrombin time with INR (06/18/2018 10:01 PM CDT) Only the most recent of 4 results within the time period is included. Prothrombin time 23.1 (H) 12.0 - 15.0 sec [facility] PATHOLOGY AND [facility] INR 2.00 (H) 0.92 - 1.12 [facility] Comment: PATHOLOGY AND For patients on anticoagulant GENOMIC MEDICINE therapy, reference ranges below: Indication: INR Value Treatment of Venous Thrombosis, 2.0-3.0 pulmonary emboli, or prophylaxis of a venous thrombosis, or systemic emboli. High dose, high risk patients 3.0-4.5 with mechanical valves. NOTE:INR values over 3.0 are sometimes associated with gastrointestinal hemorrhage, especially values over 4.0. Specimen Blood Performing Organization Address [facility] Hospitalcode Phone Number [place] [phone] [place] [phone] PATHOLOGY AND [facility] * CBC with platelet and differential (06/18/2018 10:01 PM CDT) Only the most recent of 4 results within the time period is included. WBC 11.1 (H) 4.2 - 11.0 k/uL [facility]Y AND GENOMIC MEDICINE RBC 4.08 4.04 - 5.86 m/uL [facility]OLOGY AND GENOMIC MEDICINE HGB 10.9 (L) 11.5 - 15.3 g/dL [facility]OLOGY AND GENOMIC MEDICINE HCT 33.7 (L) 34.0 - 45.0 % [facility]OLOGY AND GENOMIC MEDICINE MCV 82.6 80.0 - 98.0 fL [facility] PATHOLOGY AND GENOMIC MEDICINE MCH 26.7 (L) 27.0 - 34.0 pg [facility] PATHOLOGY AND GENOMIC MEDICINE MCHC 32.3 31.5 - 36.5 g/dL [facility] PATHOLOGY AND GENOMIC MEDICINE RDW - SD 39.8 37.0 - 51.0 fL [facility]OLOGY AND GENOMIC MEDICINE MPV 11.6 (H) 7.4 - 10.4 fL [facility]OLOGY AND GENOMIC MEDICINE Platelet count 237 150 - 400 k/uL [facility] PATHOLOGY AND GENOMIC MEDICINE Nucleated RBC 0.00 /100 WBC [facility] PATHOLOGY AND GENOMIC MEDICINE Neutrophils 62.7 36.0 - 66.0 % [facility] PATHOLOGY AND GENOMIC MEDICINE Lymphocytes 24.9 24.0 - 44.0 % [facility] PATHOLOGY AND GENOMIC MEDICINE Monocytes 9.8 (H) 0.0 - 6.0 % [facility] PATHOLOGY AND GENOMIC MEDICINE Eosinophils 1.5 0.0 - 6.0 % [facility] PATHOLOGY AND GENOMIC MEDICINE Basophils 0.4 0.0 - 1.2 % [facility] PATHOLOGY AND GENOMIC MEDICINE Immature granulocytes 0.7 0.0 - 1.0 % [facility] PATHOLOGY AND GENOMIC MEDICINE Specimen Blood Performing Organization Address City/State/Zipcode Phone Number [place] [address] [place] [address] PATHOLOGY AND [facility] * B natriuretic peptide (06/18/2018 10:01 PM CDT) Only the most recent of 4 results within the time period is included. BNP 12 0 - 100 pg/mL [facility] PATHOLOGY AND GENOMIC MEDICINE Specimen Blood Performing Organization Address City/State/Zipcode Phone Number [place] [address] [place] [address] PATHOLOGY AND GENOMIC MEDICINE * Comprehensive metabolic panel (06/18/2018 10:01 PM CDT) Only the most recent of 3 results within the time period is included. Sodium 136 135 - 150 mEq/L [facility]Y AND GENOMIC MEDICINE Potassium 4.2 3.5 - 5.0 mEq/L [facility]OLOGY AND GENOMIC MEDICINE Chloride 96 (L) 98 - 112 mEq/L [facility] PATHOLOGY AND GENOMIC MEDICINE CO2 29 24 - 31 mmol/L [facility] OF PATHOLOGY AND GENOMIC MEDICINE Anion gap 11@ANIO 7 - 15 mEq/L [facility] PATHOLOGY AND GENOMIC MEDICINE BUN 17 7 - 18 mg/dL [facility] PATHOLOGY AND GENOMIC MEDICINE Creatinine 0.80 0.50 - 0.90 mg/dL [facility] PATHOLOGY AND GENOMIC MEDICINE Glucose 106 (H) 65 - 100 mg/dL [facility] PATHOLOGY AND GENOMIC MEDICINE Calcium 9.4 8.8 - 10.2 mg/dL [facility] PATHOLOGY AND GENOMIC MEDICINE Protein 7.3 6.3 - 8.3 g/dL [facility] PATHOLOGY AND GENOMIC MEDICINE Albumin 3.6 3.5 - 5.0 g/dL [facility] PATHOLOGY AND GENOMIC MEDICINE A/G ratio 1.0 0.7 - 3.8 [facility]OLOGY AND GENOMIC MEDICINE Alkaline phosphatase 114 (H) 0 - 104 U/L [facility]OLOGY AND GENOMIC MEDICINE AST 17 10 - 35 U/L [facility] PATHOLOGY AND GENOMIC MEDICINE ALT 7 5 - 50 U/L [facility] PATHOLOGY AND GENOMIC MEDICINE Total bilirubin <0.3 0.2 - 1.2 mg/dL [facility] OF PATHOLOGY AND GENOMIC MEDICINE Specimen Plasma specimen Performing Organization Address City/State/Zipcode Phone Number [facility] [address] [place] [address] PATHOLOGY AND GENOMIC MEDICINE * XR Chest 2 Vw (06/18/2018 9:55 PM CDT) Narrative Performed At EXAMINATION:XR CHEST 2 VW [facility] CLINICAL HISTORY:chest pain COMPARISON:05/21/2018 chest, May 06, 2018 IMPRESSION: Left subclavian transvenous pacer device in place. The right atrial lead is directed inferiorly and may be free floating in the right atrium. This is unchanged compared to previous. Clinical correlation needed. The ventricular lead is projected over the ventricular apex. The lungs are clear. The heart is not enlarged. Mild vascular ectasia and atherosclerosis. The bony structures are within normal limits. [facility]-[id number] Procedure Note Interface, Radiology Results Incoming - 06/18/2018 10:05 PM CDT EXAMINATION: XR CHEST 2 VW CLINICAL HISTORY: chest pain COMPARISON: 05/21/2018 chest, May 06, 2018 IMPRESSION: Left subclavian transvenous pacer device in place. The right atrial lead is directed inferiorly and may be free floating in the right atrium. This is unchanged compared to previous. Clinical correlation needed. The ventricular lead is projected over the ventricular apex. The lungs are clear. The heart is not enlarged. Mild vascular ectasia and atherosclerosis. The bony structures are within normal limits. [facility]-[id number] Performing Organization Address [facility] Phone Number [facility] [address] [place] [address] * ECG 12 lead (06/18/2018 9:25 PM CDT) Only the most recent of 3 results within the time period is included. Ventricular rate 77 [facility] Atrial rate 77 [facility] CA interval 222 [facility] QRSD interval 88 [facility] QT interval 408 [facility] QTC interval 461 [facility] P axis 1 54 [facility] QRS axis 1 -70 [facility] T wave axis 36 [facility] EKG impression Sinus rhythm with 1st degree [facility] AV block-Left anterior fascicular block-Nonspecific ST abnormality-Abnormal ECG-No previous ECGs available- Performing Organization Address [facility] [place] Phone Number [facility] [place] [address] [place] [address] * Cv warehouse general laborer procedure (05/24/2018 10:51 AM CDT) Narrative Performed At [facility] REPORT Indication: Chest pain. Abnormal stress test Informed consent was obtain. Patient brought to the warehouse general laborer. Moderate sedation provided. Right groin infiltrated with with Xylocaine 2%. An attempt was made to access the right common femoral artery which was unsuccessful. Ultrasound probe was taken right common femoral, superficial, profunda were identified.Ultrasound guided one single anterior wall puncture was perform to the femoral artery with a micropuncture system. A [address] in[address] A 6 [place] pig tail, JL4 and 3 DRC catheter were use. Findings Left ventricle: Ejection fraction 55% LVEDP 20 mmHg Systolic pressure was 150 mmHg There is no gradient across the aortic valve. Coronaries: Left main artery is patent. Left anterior descending artery patent and very small distally, doesn't reach to apex Diagonal patent Co dominant Circumflex and OM branches patent OM4 and OM5 wraps around the apex and supplying there Right coronary artery and its PDA branch patent RA lead of [place] scientific Pace maker is in IVC RV lead OK PPM checked VVI 50 bpm with 3% V pacing Right femoral angiography and Mynx closure device applied for hemostasis. Physician supervised moderate sedation with IV Versed and fentanyl for 46 minutes Continuous monitoring on the pulse oximetry, blood pressure, heart rate, patient consciousness level and patient pain level was performed by independent RN Patient tolerated the procedure well Performing Organization Address [facility] [place] Phone Number [facility] [phone] [place] [address] * Cv stress test (05/23/2018 11:26 AM CDT) Resting HR 56 [facility] MUSE Resting BP 143 H MUSE Peak MET Achieved 1.0 H MUSE Protocol Name ADENOSINE [facility] MUSE Time in Exercise Phase 00:01:08 [facility] MUSE Max Systolic BP 148 [facility] MUSE Max Diastolic BP 78 [facility] MUSE Max Heart Rate 89 [facility] MUSE Max Predicted Heart Rate 151 [facility] MUSE Target HR Formula (220 - Age)*100% [facility] MUSE Test Indication [facility] MUSE Arrhy During Ex none [facility] MUSE ECG Interp Before EX [facility] MUSE ECG Interp During Ex none [facility] MUSE Ex Summary Comment Equivocal stress test [facility] MUSE Chest Pain Statement none H MUSE Overall HR Response to appropriate [facility] MUSE Exercise Overall BP Response To normal resting BP - [facility] MUSE Exercise appropriate response Reason for Termination COMPLETED [facility] MUSE Stress Test Impression Waveform interpreted in report [facility] MUSE associated with image study. No interpretation is provided as part of this Stress ECG report.-- Performing Organization Address [facility] [place] Phone Number [employer] [address] [place] [address] * Myocardial perfusion (05/23/2018 11:26 AM CDT) Target HR 128.35 bpm [facility] Narrative Performed At [facility] Equivocal left ventricular perfusion. Equivocal left ventricular perfusion. No chest pain No exercise induced ST-T changes. No arrhythmias with exercise. Normal heart rate and BP response. Myoview report Breast and Diaphragmatic attenuation artifact Can not rule out minimal small inferior defect due to attenuation artifact No conclusive significant large reversible Ischemia Normal wall motion EF 77 % Performing Organization Address City/[facility] Phone Number [facility] [address] [place] [address] * T3, free (05/23/2018 5:15 AM CDT) T3, free 2.33 2.18 - 3.98 pmol/L [facility]OMIC MEDICINE Specimen Plasma specimen Performing Organization Address [facility] [place] [address] PATHOLOGY AND GENOMIC MEDICINE * Thyroid stimulating hormone (05/23/2018 5:15 AM CDT) TSH 2.66 0.27 - 4.20 uIU/mL [facility]OMIC MEDICINE Specimen Plasma specimen Performing Organization Address [facility] [place] [address] PATHOLOGY AND GENOMIC MEDICINE * Magnesium level (05/23/2018 5:15 AM CDT) Magnesium 2.20 1.60 - 2.40 mg/dL [facility]OMIC MEDICINE Specimen Plasma specimen Performing Organization Address [facility] [place] [address] PATHOLOGY AND GENOMIC MEDICINE * Hemoglobin A1c (05/23/2018 5:15 AM CDT) Hemoglobin A1C 4.9 4.0 - 6.0 % [facility] Comment: PATHOLOGY AND GENOMIC MEDICINE Less than 6% - Goal of therapy for Type II Diabetes Less than 7%-Goal of therapy for Type I Diabetes Less than 8%-Accepta ble control for Type I or Type II Diabetes Greater than 8%-Unacceptabl e control; action indicated. ([id number]) Specimen Blood Performing Organization Address City/[facility]/Zipcode Phone Number [facility] [address] [place] [address] PATHOLOGY AND GENOMIC MEDICINE * Bilirubin direct (05/23/2018 5:15 AM CDT) Bilirubin direct <0.2 0.0 - 0.4 mg/dL [facility] GENOMIC MEDICINE Specimen Plasma specimen Performing Organization Address [facility] Phone [facility] [address] [place] [address] PATHOLOGY AND GENOMIC MEDICINE * Lipid panel (05/23/2018 5:15 AM CDT) Cholesterol 183 0 - 199 mg/dL [facility]Y [facility] GENOMIC MEDICINE Triglycerides 91 0 - 149 mg/dL [facility]OLOGY AND GENOMIC MEDICINE HDL cholesterol 65 40 - 9,999 mg/dL [facility]OLOGY AND GENOMIC MEDICINE LDL cholesterol 124 (H)Comment: Result 0 - 99 mg/dL [facility] obtained by direct LDL PATHOLOGY AND measurement GENOMIC MEDICINE Lipid panel See below [facility] interpretation Comment: PATHOLOGY AND Total Cholesterol GENOMIC MEDICINE (mg/dL) LDL Cholesterol (mg/dL) <200 Desirable <100 Optimal 200-239Borderline -[id number] 29Near or above optimal >=240High 130-159Borderline- high 160-189High >=190Very high HDL Cholesterol (mg/dL) Triglycerides (mg/dL) <40Low <150 Normal >=60 High 150-199Borderline- high 200-499High >=500Very high Risk Catergories that modify LDL goals. Risk Catergories LDL goal (mg/dL) CHD and CHD risk equivalent <100 (10-year risk >20%) Multiple (2+) risk factors <130 (10-year risk=<20%) 0-1 risk factors <160 (<10-year risk) Defining levels of lipids in metabolic syndrome Triglycerides >=150 mg/dL HDL Cholesterol Men <40 mg/dL Women <50 mg/dL Non-HDL cholesterol is a second target for therapy in persons with high triglycerides (>=200 mg/dL) Specimen Plasma specimen Performing Organization Address [facility] Phone Number [place] [phone] PATHOLOGY AND GENOMIC MEDICINE * Anti Xa, unfractionated (05/22/2018 2:06 PM CDT) Anti Xa, unfractionated 0.76 (H) 0.30 - 0.70 U/mL [facility] Comment: PATHOLOGY AND Therapeutic Range:0.30 - GENOMIC MEDICINE 0.70 U/mL All critical values on the specimen doublechecked by repeat analysis.Critical values noted and called to Rox Lehman RN/SJOBUKimi by DEVYN on05/22/2018at15:1 0Patients name, last 4 digits of MR number and results read back correctly by person recieving call.Repeated result was 0.78 Specimen Blood Performing Organization Address [facility] [address] PATHOLOGY AND GENOMIC MEDICINE * D-dimer (05/22/2018 2:06 PM CDT) D-dimer 0.36 0.00 - 0.40 ug/mL FEU [facility] Comment: PATHOLOGY AND Units are ug/ml Fibrinogen GENOMIC MEDICINE Equivalent Unit. When combined with low clinical probability, D-dimer results of less than 0.5 ug/ml FEU have a good negativepredictive value in excluding PE or DVT. For D-dimer results greater than 0.5ug/ml FEU further testing is indicated if PE or DVT is suspectedclinically. Elevated D-dimer results have been reported in DVT, PE, and DIC cases and may indicate the presence of a clot. D-dimer results may be elevated due to old age, , inflammatory diseases, trauma, post-operative states, sepsis, and malignancies. Specimen Blood Performing Organization Address [facility]/Zipcode Phone Number [place] [phone] PATHOLOGY AND GENOMIC MEDICINE * CBC hemogram (05/22/2018 2:06 PM CDT) WBC 7.7 4.2 - 11.0 k/uL [facility] GENOMIC MEDICINE RBC 4.10 4.04 - 5.86 m/uL [facility]Y AND GENOMIC MEDICINE HGB 11.1 (L) 11.5 - 15.3 g/dL [facility]Y AND GENOMIC MEDICINE HCT 34.8 34.0 - 45.0 % [facility]Y AND GENOMIC MEDICINE MCV 84.9 80.0 - 98.0 fL [facility]Y AND GENOMIC MEDICINE MCH 27.1 27.0 - 34.0 pg [facility]OLOGY AND GENOMIC MEDICINE MCHC 31.9 31.5 - 36.5 g/dL [facility]OLOGY AND GENOMIC MEDICINE RDW - SD 41.1 37.0 - 51.0 fL [facility]Y AND GENOMIC MEDICINE MPV 10.8 (H) 7.4 - 10.4 fL [facility]OLOGY AND GENOMIC MEDICINE Platelet count 231 150 - 400 k/uL [facility]OLOGY AND GENOMIC MEDICINE Nucleated RBC 0.00 /100 WBC [facility]OLOGY AND GENOMIC MEDICINE Specimen Blood Performing Organization Address City/State/Zipcode Phone Number [facility] [place] [address] PATHOLOGY AND GENOMIC MEDICINE * CT Angiogram Pe Chest (05/22/2018 1:29 PM CDT) Narrative Performed At EXAMINATION: [facility] CT ANGIOGRAM PE CHEST CLINICAL HISTORY: Sinus Tachycardia, D dimer TECHNIQUE: CT angiographic images of the chest were obtained during intravenous administration of iodinated contrast. Computerized reformatted images and 3-D MIP images were also obtained and archived (CT pulmonary embolus protocol). Radiation dose reduction technique was utilized. COMPARISON: None. IMPRESSION: 1.There is no CT evidence of pulmonary embolus. 2.There is a transvenous pacemaker present. 3.No mediastinal or hilar masses are present. 4.No pulmonary parenchymal masses or infiltrates are seen, and there are no pleural effusions. 5.Limited scans through the upper abdomen and straight a small cyst in the upper pole the right kidney which does not require follow-up. No masses are seen. [facility]-[id number] Procedure Note Interface, Radiology Results Incoming - 05/22/2018 1:45 PM CDT EXAMINATION: CT ANGIOGRAM PE CHEST CLINICAL HISTORY: Sinus Tachycardia, D dimer TECHNIQUE: CT angiographic images of the chest were obtained during intravenous administration of iodinated contrast. Computerized reformatted images and 3-D MIP images were also obtained and archived (CT pulmonary embolus protocol). Radiation dose reduction technique was utilized. COMPARISON: None. IMPRESSION: 1. There is no CT evidence of pulmonary embolus. 2. There is a transvenous pacemaker present. 3. No mediastinal or hilar masses are present. 4. No pulmonary parenchymal masses or infiltrates are seen, and there are no pleural effusions. 5. Limited scans through the upper abdomen and straight a small cyst in the upper pole the right kidney which does not require follow-up. No masses are seen. [id number] Performing Organization Address City/State/Zipcode Phone Number [employer] [address] [place] [address] * Echocardiogram complete w contrast and 3D if needed (05/22/2018 11:48 AM CDT) Velocity Ratio (V1/V2) 0.91 m/s [facility] IVS,d 0.81 cm [facility] EF 56.34 % [facility] Ascending aorta 3.50 cm [facility] LVPWD,d 0.79 cm [facility] AoV Mean PG 5.59 mmHg [facility] AV LVOT peak gradient 9.09 mmHg [facility] MV mean gradient 2.89 mmHg [facility] MV valve area p 1/2 3.52 cm2 [facility] method PV Pk Grad 5.60 mmHg [facility] E/A ratio 0.63 [facility] E wave decelartion time 215.46 msec [facility] IVRT 65.65 msec [facility] LVOT Diam,S 2.05 cm [facility] LVOT area 3.30 cm2 [facility] LVOT Vmax 1.58 m/s [facility] LVOT VTI 0.31 m [facility] AoV Peak PG 11.90 mmHg [facility] MV Peak E Jules 0.85 m/s [facility] MV stenosis pressure 1/2 62.48 ms [facility] time MV Peak A Jules 1.36 m/s [facility] Ao Root Diameter 3.41 cm [facility] AoV Area, Vmax 2.87 cm2 [facility] AoV Area, VTI 2.98 cm2 [facility] AoV Vmax 1.74 m/s [facility] IVS/LVPW,2D 1.02 [facility] Left Atrium Dimension 3.78 cm [facility] Anterior LV,d 4.75 cm [facility] LV,s 3.35 cm [facility] PV VMAX 1.18 m/s [facility] RVSP (TR) 31.84 mmHg [facility] TR Vpeak 2.34 mm/s [facility] MV E A ratio 0.62 mmHg [facility] TR pk grad 16.67 mmHg [facility] MR peak grad 9.57 mmHg [facility] RVSP 31.84 mmHg [facility] Ao Root Diameter 3.41 cm [facility] LV SYS VOL 45.90 ml [facility] LV NAPIER VOL 105.13 ml [facility] LA area s A4C 19.33 cm2 [facility] LA Vol MOD A4C 50.17 ml [facility] LV SV Teich 2D 59.23 ml [facility] LV Vol s Teich PSAX 45.90 ml [facility] LVOT CO 8.21 l/min [facility] LVOT HR for LVOT CO 87.58 bpm [facility] MV Vmax 1.55 m [facility] MV VTI Tips 0.42 m [facility] AoV Vmn 1.12 [facility] IVS s 2D 1.15 [facility] LV FS Cube 2D 29.45 [facility] LV FS Teich 2D 29.45 [facility] AoV VTI 0.31 m [facility] LV EF,2D 64.88 % [facility] MV AE ratio 1.60 [facility] LVOT Vmn 1.03 [facility] Aov area Vmn 3.01 cm2 [facility] LVOT mean grad 4.62 mmHg [facility] MAX Pred HR 150.09 [facility] 85 of MPHR 127.57 [facility] Calc MPHR 150.09 bpm [facility] IVS pct thck PLAX 43.10 % [facility] LV SV Cube 2D 69.71 ml [facility] LV vol d cube 2D 107.45 ml [facility] LV vol s cube 2D 37.73 ml [facility] LVPW pct thck PLAX 66.07 % [facility] LVPW s PLAX 1.32 cm [facility] MV Decel slope 3.94 m/s2 [facility] Pred Exer Dur R1 6.83 [facility] Pred METS R1 5.61 [facility] Narrative Performed At [facility] There is mild left ventricular concentric hypertrophy. Left Ventricular ejection fraction is 50 - 55%. Spectral Doppler shows impaired relaxation pattern of left ventricular diastolic filling. Left atrium size is mildly dilated. There is moderate sclerosis of the aortic valve leaflets. The mitral valve appears calcified. No pericardial effusion Performing Organization Address [facility]/Zipcode Phone Number [facility] [address] [place] [address] * Basic metabolic panel (05/22/2018 8:45 AM CDT) Only the most recent of 2 results within the time period is included. Sodium 137 135 - 150 mEq/L [facility] GENOMIC MEDICINE Potassium 4.4 3.5 - 5.0 mEq/L [facility]Y AND GENOMIC MEDICINE Chloride 99 98 - 112 mEq/L [facility]OLOGY AND GENOMIC MEDICINE CO2 27 24 - 31 mmol/L [facility]OLOGY AND GENOMIC MEDICINE Anion gap 11@ANIO 7 - 15 mEq/L [facility]OLOGY AND GENOMIC MEDICINE BUN 15 7 - 18 mg/dL [facility]Y AND GENOMIC MEDICINE Creatinine 0.60 0.50 - 0.90 mg/dL [facility]OLOGY AND GENOMIC MEDICINE Glucose 91 65 - 100 mg/dL [facility]OLOGY AND GENOMIC MEDICINE Calcium 9.0 8.8 - 10.2 mg/dL [facility]Y AND GENOMIC MEDICINE Specimen Plasma specimen Performing Organization Address [facility] Phone Number [facility] [address] [place] [address] PATHOLOGY AND GENOMIC MEDICINE * Creatine kinase, total (CPK) (05/21/2018 10:13 PM CDT) Only the most recent of 2 results within the time period is included. Creatine kinase 35 26 - 192 U/L [facility] GENOMIC MEDICINE Specimen Plasma specimen Performing Organization Address [facility] [place] [address] PATHOLOGY AND GENOMIC MEDICINE * XR Chest 1 Vw Portable (05/21/2018 9:57 PM CDT) Only the most recent of 2 results within the time period is included. Narrative Performed At EXAMINATION:XR CHEST 1 VW PORTABLE [facility] CLINICAL HISTORY: Chest Pain COMPARISON:05/06/2018 IMPRESSION: No radiographic evidence for acute cardiopulmonary process. Cardiomediastinal silhouette is within normal limits of size. Left chest pacemaker is present. No focal or confluent airspace consolidation is seen on this single AP plane to suggest acute pneumonia. No sizable pleural effusion. No pneumothorax identified. No acute osseous abnormalities are visualized. [facility]-[id number] Procedure Note Hm Interface, Radiology Results Incoming - 05/21/2018 10:07 PM CDT EXAMINATION: XR CHEST 1 VW PORTABLE CLINICAL HISTORY: Chest Pain COMPARISON: 05/06/2018 IMPRESSION: No radiographic evidence for acute cardiopulmonary process. Cardiomediastinal silhouette is within normal limits of size. Left chest pacemaker is present. No focal or confluent airspace consolidation is seen on this single AP plane to suggest acute pneumonia. No sizable pleural effusion. No pneumothorax identified. No acute osseous abnormalities are visualized. [facility]-[id number] Performing Organization Address City/State/Zipcode Phone Number [facility] [address] [place] [address] * Estimated GFR (05/06/2018 10:30 AM CDT) GFR Non Af Amer >90 mL/min/1.73 m2 [facility] GENOMIC MEDICINE GFR Af Amer >90 mL/min/1.73 m2 [facility] Comment: PATHOLOGY AND Chronic kidney disease: <60 GENOMIC MEDICINE mL/min/1.73m2 Kidney failure: <15 mL/min/1.73m2 The estimated GFR is calculated from the IDMS-traceable Modification of Diet in Renal Disease Equation. The accuracy of the calculation is poor when the creatinine is normal. Calculated values >90 mL/min/1.73m2 are not reported. This equation has not been validated in children (<18 years), women, the elderly (>70 years), or ethnic groups other than Caucasians and Americans. Specimen Plasma specimen Performing Organization Address City/State/Zipcode Phone Number [facility] [place] [address] PATHOLOGY AND GENOMIC MEDICINE after 10/28/2017 Insurance Payer Benefit Subscriber ID Type Phone Address Plan / Group MEDICARE MEDICARE xxxxxxxxxx Medicare [place], [place] PART A AND B SUMA MOISE xxxxxxxxx [facility] Advance Directives Patient has advance care planning documents on file. For more information, arron us contact: Honor [employer] [phone] [place] [address]
--- OUTSIDE RECORDS SUMMARY | 2018-10-29 09:25 | XMS REPORT ---
Author Author [facility] Address Unknown Phone Unavailable Care Team Providers Care Educational Aide Name Role Phone Divya CH Unavailable Unavailable Latasha WESTBROOK Unavailable Unavailable Alicia CONNOR Unavailable Unavailable Problems This patient has no known problems. Allergies, Adverse Reactions, Alerts This patient has no known allergies or adverse reactions. Medications This patient has no known medications. Results Test Description Test Time Test Comments Text Results Atomic Results Result Comments CT BRAIN WO [facility] [address] [address] Patient Name: PALMIRA BACH MR #: [id number] : 1950 Age/Sex: 67/F Req #: [id number] Adm Physician: Ordered by: OZZIE CH MD Report #: [id number] Location: ER Room/Bed: Procedure: [id number] CT/CT BRAIN WO Exam Date: 10/25/17 Exam Time: 1055 REPORT STATUS: Signed History:Headache and hypertension. Comparison studies:None Technique: Axial images were obtained from the skull base to the vertex. Coronal and sagittal images reconstructed from the axial data. Intravenous contrast: None Findings: Scalp/skull: No abnormalities. Extra-axial spaces: No masses. No fluid collections. Brain sulci: Mildly prominent. Ventricles: Age appropriate. No hydrocephalus. Parenchyma: Stable left putamen prominent prevascular space as a variation of anatomy. . No masses, hemorrhage, acute or chronic cortical vascular insults. Sellar/suprasellar region: No abnormalities. Craniocervical junction: Patent foramen magnum. No Chiari one malformation. Incidental findings: Atherosclerotic calcifications in the carotid siphons . Impression: No acute abno rmalities. Signed by: DR Marc Gordillo M.D. on 10/25/2017 12:05 PM Dictated By: MARC BURNETTE MD 04 Transcribed By: MIGUELITO on 10/25/171204 COPY TO: OZZIE CH MD CHEST SINGLE (PORTABLE) [place] [address] Patient Name: PALMIRA BACH MR #: [id number] : 1950 Age/Sex: 67/F Req #: [id number] Adm Physician: Ordered by: OZZIE CH MD Report #: [id number] Location: ER Room/Bed: Procedure: [id number] DX/CHEST SINGLE (PORTABLE) Exam Date: Exam Time: REPORT STATUS: Signed Chest, AP. History: Cough. Comparison: Portable chest 09/14/2017 Discussion: Lines and support catheters: Left chest dual-lead cardiac pacemaker with leads projecting over the expected regions of the right atrium and ventricle unchanged. Cardiovascular: The cardiac silhouette is mildly enlarged. Mediastinum: No mediastinal, hilar, or axillary mass or lymphadenopathy. Lungs: No parenchymal mass. No focal consolidation. Pleura: No pleural effusion or pneumothorax. Bones: No acute osseous abnormality. Degenerative changes of the thoracic spine. Impression: Mild cardiomegaly. No acute thoracic abnormality. Signed by: Dr. Tylor Chi M.D. on 10/25/2017 11:18 AM Dictated By: FLAKITA CHI MD, MD 1118 T ranscribed By: MIGUELITO on 10/25/17 1118 COPY TO: OZZIE CH MD CHEST SINGLE (PORTABLE) [place] [address] Patient Name: PALMIRA BACH MR #: [id number] : 1950 Age/Sex: 67/F Req #: [id number] Adm Physician: Ordered by: JARROD ANN [employer] Report #: [id number] Location: ER Room/Bed: Procedure: [id number] DX/CHEST SINGLE (PORTABLE) Exam Date: 09/14/17 Exam Time: 1100 REPORT STATUS: Signed PROCEDURE: A single AP view of the chest. COMPARISON: None. INDICATIONS: SOB FINDINGS: Lines/tubes: Left chest cardiac device with leads projecting over the expected regions of the right atrium and ventricle. Lungs: The lungs are well inflated and clear. There is no evidence of pneumonia or pulmonary edema. Pleura: There is no pleural effusion or pneumothorax. Heart and mediastinum: The heart and the mediastinum are unremarkable. Bones: No acute bony abnormality. Degenerative changes of the thoracic spine. IMPRESSION: No acute radiographic abnormality. Dictated by: Canelo Genao M.D. on 09/14/2017 at 11:45 Electronically approved by: Canelo Genao M.D. on 09/14/2017 at 11:45 Dictated By: CANELO GENAO MD 1145 Transcribed By: RYAN on 09/14/17 1145 COPY TO: JARROD ANN NP CHEST SINGLE (PORTABLE) [place] [address] Patient Name: PALMIRA BACH MR #: [id number] : 1950 Age/Sex: 67/F Req #: [id number] Adm Physician: Ordered by: MIGUELANGEL WILD [employer] WORKER Report #: [id number] Location: ER Room/Bed: Procedure: [id number] DX/CHEST SINGLE (PORTABLE) Exam Date: 08/19/17 Exam Time: 1210 REPORT STATUS: Signed PROCEDURE: A single AP view of the chest. COMPARISON: [facility], DX, CHEST SINGLE (PORTABLE), 04/30/2017, 13:50. INDICATIONS: CHEST PAIN, ELEVATED BLOOD PRESSURE FINDINGS: Exam is limited by rotation. Lines/tubes: Stable 2-lead left upper chest cardiac device Lungs: The lungs are well inflated and grossly clear. There is no evidence of pneumonia or pulmonary edema. Pleura: There is no pleural effusion or pneumothorax. Heart and mediastinum: Cardiac silhouette is unremarkable. Pulmonary vasculature is normal. Tortuous aorta Bones: No acute bony abnormality. Multilevel degenerative disc changes in the thoracic spine. IMPRESSION: 1. No acute cardiopulmonary abnormalities. Meng Ramirez M.D. Dictated by: Meng worley M.D. on 08/19/2017 at 13:11 Electronically approved by: Meng Ramirez M.D. on 08/19/2017 at 13:11 Dictated By: MENG RAMIREZ MD 1311 Transcribed By: RYAN on 08/19/17 1311 COPY TO: MIGUELANGEL WILD [employer] WORKER CT BRAIN WO [place] [address] Patient Name: PALMIRA BACH MR #: [id number] : 1950 Age/Sex: 66/F Req #: [id number] Adm Physician: Ordered by: NO PURCELL Report #: [id number] Location: ER Room/Bed: Procedure: [id number] CT/CT BRAIN WO Exam Date: 04/30/17 Exam Time: 1639 REPORT STATUS: Signed History:Dizziness today Comparison studies:CT head 04/24/2017 Technique: Axial images were obtained from the skull base to the vertex. Coronal and sagittal images reconstructed from the axial data. Intravenous contrast: None Findings: Scalp/skull: No abnormalities. Extra-axial spaces: No masses. No fluid collections. Brain sulci: Appropriate for age. Ventricles: Appropriate for age. No hydrocephalus. Parenchyma: No abnormal density. No masses, hemorrhage, acute or chronic cortical vascular insults. Sellar/suprasellar region: No abnormalities. Craniocervical junction: Patent foramen magnum. No Chiari one malformation. Incidental findings: Atherosclerotic calcifications in the carotid siphons . Prominent vascular space at the left inferior putamen. Impression: No acute abnormalities. Stable compared to the previous examination Signed by: DR Marc Gordillo M.D. on 04/30/2017 5:34 PM Dictated By: MARC BURNETTE MD 057 Transcribed By: MIGUELITO on 04/30/171733 COPY TO: NO PURCELL CHEST SINGLE (PORTABLE) [facility] [address] [address] Patient Name: PALMIRA BACH MR #: [id number] : 1950 Age/Sex: 66/F Req #: [id number] Adm Physician: Ordered by: DON WESTBROOK MD Report #: [id number] Location: ER Room/Bed: Procedure: [id number] DX/CHEST SINGLE (PORTABLE) Exam Date: Exam Time: REPORT STATUS: Signed PROCEDURE: CHEST SINGLE (PORTABLE) COMPARISON: 09/23/2016. INDICATIONS: DIZZY FINDINGS: Left subclavian approach implantable cardiac device body and leads are stable in position. The lungs remain well-inflated. No focal airspace consolidation, pleural effusion, or pneumothorax. Stable cardiomediastinal contour with tortuosity of the thoracic aorta. Normal heart size for technique. No pulmonary edema. No acute osseous abnormality. CONCLUSION: No acute cardiopulmonary abnormality. Dictated by: Carlos Lama M.D. on 04/30/2017 at 14:21 Electronically approved by: Carlos Lama M.D. on 04/30/2017 at 14:21 Dictated By: CARLOS LAMA MD 1421 Transcribed By: RYAN on 04/30/17 1421 COPY TO: DON WESTBROOK MD CT BRAIN WO [place] [address] Patient Name: PALMIRA BACH MR #: [id number] : 1950 Age/Sex: 66/F Req #: [id number] Adm Physician: Ordered by: MIGUELANGEL CONNOR MD Report #: [id number] Location: ER Room/Bed: Procedure: [id number] CT/CT BRAIN WO Exam Date: Exam Time: REPORT STATUS: Signed History:Fall Comparison studies:Head CTs on 04/14/17 and 06/26/2016 Technique: Axial images were obtained from the skull base to the vertex. Coronal and sagittal images reconstructed from the axial data. Intravenous contrast: None Findings: Scalp/skull: No abnormalities. Extra- axial spaces: No masses. No fluid collections. Brain sulci: Appropriate for age Ventricles: Normal in size and configuration. No hydrocephalus. Parenchyma: No abnormal densities No masses, hemorrhage, acute or chronic cortical vascular insults. Sellar/suprasellar region: No abnormalities. Craniocervical junction: Patent foramen magnum. No Chiari one malformation. Incidental findings: 3 mm enlarged perivascular space in the left inferior putamen. Impression: No abnormalities. No changes when compared to the previous head CT's Signed by: Dr. Car Brennan M.D. on 04/24/2017 8:30 PM Dictated By: CAR BRENNAN MD, MD 29 Transcribed By: MIGUELITO on 04/24/172029 COPY TO: MIGUELANGEL CONNOR MD
[2018-10-29 15:35] VITALS: BP 118/74
--- NOTE | 2018-10-30 07:11 | Operative Report ---
DATE OF PROCEDURE: 10/29/2018 SURGEON: Quinn Garrido MD PROCEDURE: EGD with biopsies and colonoscopy. INDICATIONS FOR EGD: Upper abdominal pain exacerbated with meals. INDICATIONS FOR COLONOSCOPY: Surveillance colonoscopy, personal history of advanced adenoma. MEDICATIONS: The patient was done under MAC. Please anesthesiologist's note. PROCEDURE IN DETAIL: With the patient in the left lateral decubitus position, a flexible fiberoptic Olympus gastroscope was introduced into the esophagus under direct visualization without any difficulty. There was some patchy erythema noted in the distal esophagus. The scope was then advanced with ease into the stomach. Mucosa overlying of the antrum revealed some diffuse erythema and moderate edema, and biopsies were obtained and sent to stain for H. pylori. Mucosa overlying the body revealed some patchy areas of somewhat atrophic mucosa and biopsies were obtained. The pylorus was normal in contour and shape and it was intubated with ease and the scope was advanced to all the way to the second portion of the duodenum. The scope was then withdrawn slowly. Mucosa overlying the proximal second portion and the duodenal bulb appeared to be within normal limits. The scope was then withdrawn back into the stomach and retroflexed. Mucosa overlying the fundus and the cardia appeared to be within normal limits. The scope was then straightened out and it was subsequently withdrawn. The patient tolerated procedure well. IMPRESSION: 1. Distal esophagitis. 2. Rule out atrophic gastritis. PLAN: Followup pathology. Initiate Protonix 40 mg one p.o. q.a.m., a.c. PROCEDURE IN DETAIL: The patient was then turned around after adequate lubrication of the anal canal. A flexible fiberoptic Olympus colonoscope was inserted into the rectum with ease and advanced all the way to the cecum. Moderate amount of retained stool was noted to be scattered in the colon, primarily in the right colon. The scope was then withdrawn slowly visualized the mucosa overlying the ascending, transverse, descending, sigmoid, and rectum, other than for some scattered diverticular disease, grossly appeared to be within normal limits. The scope was then retroflexed into the distal rectum. Small internal hemorrhoids were noted, none of which was actively bleeding. The scope was then straightened out and it was subsequently withdrawn. The patient tolerated procedure well. IMPRESSION: 1. Suboptimal prep. 2. Diverticulosis, amenable. 3. Internal hemorrhoids, none actively bleeding. PLAN: Initiate high-fiber and low-fat diet. Initiate high-fiber supplement. The patient might benefit from a repeat colonoscopy in 1 to 2 years after a better prep. MD HELDER Myles/MARTHA /[id number] cc: Clinton Parra DO
== END | disposition home or self-care (01) ==
LOC: OR 09:19
PROVIDERS: ATTEND Internal Medicine Gastroenterology
DX: Z12.11 Encounter for screening for malignant neoplasm of colon (principal); K29.50 Unspecified chronic gastritis without bleeding; R13.10 Dysphagia, unspecified; K46.9 Unspecified abdominal hernia without obstruction or gangrene; R10.12 Left upper quadrant pain; J18.0 Bronchopneumonia, unspecified organism; Z86.010 Personal history of colon polyps; Z88.5 Allergy status to narcotic agent; I48.91 Unspecified atrial fibrillation; I10 Essential (primary) hypertension; I25.10 Atherosclerotic heart disease of native coronary artery without angina pectoris; K51.90 Ulcerative colitis, unspecified, without complications; Z95.0 Presence of cardiac pacemaker; K57.30 Diverticulosis of large intestine without perforation or abscess without bleeding; K64.8 Other hemorrhoids; K20.9 Esophagitis, unspecified
CPT/HCPCS: 43239; 45378; 88305; 88312; J1610; J2250; J2704